=== PATIENT | male | born 1935 | race Caucasian/White ===

== ENCOUNTER 2022-06-21 14:09 | Emergency (ER) | payer MEDICARE ==
[2022-06-21 15:57] LABS: BASOPHIL 0.3 % (0-2); EOSINOPHIL 0.2 % (0-7); HCT 36.3 % (42.0-52.0); HGB 12.9 g/dl (13.2-18.0); LYMPHOCYTE 9.6 % (15-48); MCH 33.6 pg (25.0-31.0); MCHC 35.5 g/dL (32.0-36.0); MCV 94.5 fL (78.0-100.0); MONOCYTE 5.5 % (0-12); MPV 8.8 fL (6.0-9.5); NRBC 0; PLT 194 K/uL (150-400); RBC 3.84 M/uL (4.70-6.00); RDW 12.9 % (11.5-14.0); WBC 12.5 K/uL (4.0-10.5)
[2022-06-21 16:26] LABS: ALBUMIN 3.6 g/dL (3.4-5.0); BILIRUBIN - TOTAL 0.8 mg/dL (0.2-1.0); CREATININE 1.6 mg/dL (0.67-1.17); POTASSIUM 3.2 mmol/L (3.5-5.1); TOTAL PROTEIN 6.6 g/dL (6.4-8.2)
== END 2022-06-21 18:41 | disposition home or self-care (01) ==
LOC: FER 14:09
PROVIDERS: Emergency Medicine
DX: N17.9 Acute kidney failure, unspecified (principal); I95.9 Hypotension, unspecified; I10 Essential (primary) hypertension; Z88.0 Allergy status to penicillin
CPT/HCPCS: 36415; 71046; 72100; 80053; 85025; J3480; J7030